=== PATIENT | male | born 1935 | race Caucasian/White ===

== ENCOUNTER 2018-09-25 23:52 | Inpatient (IN) | payer MEDICARE, OTHER ==
[~2018-09-25] VITALS: Ht 188 cm; Wt 93.4 kg
--- NOTE | 2018-09-25 23:54 | NUR ---
83 Y/O MALE PRESENTS TO THE ER BY BRENDA WITH AN ALOC X 2 HOURS PER . PT POOR HISTORIAN AND DIFFICULT TO OBTAIN INFORMATION FROM. SHE STATES THE PT "HAS BEEN FINE" AND THEN STARTED ACTING STRANGE. EMS FOUND THE PT TO BE ALERT TO PAINFUL STIMULI WITH A GCS OF 9. AXILLARY TEMP WAS 103.3, RA SAT 87%. HR 150-160S, AFIB WITH RVR. NO ST CHANGES ON MONITOR. REPORTS HX OF CVA 6 MONTHS AGO IN WHICH HE TAKES ELIQUIS AND A CARDIAC HX BUT UNKNOWN WHAT. EMS ESTABLISHED BILATERAL 18G IVS AND ADMINISTERED 400ML OF FLUID. FSBS WAS 127. PT ON O2 VIA NC @ 4LPM. DR. ZAMORANO AT BEDSIDE. WILL CONTINUE TO MONITOR.
[2018-09-26] MEDS ORDERED: SODIUM CHLORIDE FLUSH 10ML SYR IVF ONE
--- NOTE | 2018-09-26 00:03 | NUR ---
ZHAO INSERTED, CLEAR YELLOW URINE OUTPUT OF 100ML. UA OBTAINED AND SENT TO LAB. TEMP PROB ATTACHED.
[2018-09-26] MEDS ORDERED: ACETAMINOPHEN 650 MG SUPP ONE (00:19)
--- NOTE | 2018-09-26 00:19 | NUR ---
TYLENOL ADMINISTERED RECTALLY FOR FEVER. COLD PACKS PLACED ON GROIN AND AXILLARY BILATERALLY FOR COOLING. ZHAO TEMP CURRENTLY 104.4
[2018-09-26 00:30] LABS: MEAN CORPUSCULAR HEMOGLOBIN 35.9 pg (27.5-34.5); MEAN CORPUSCULAR HGB CONC 33.7 g/dL (33.2-36.2); MEAN CORPUSCULAR VOLUME 106.7 fL (81-97); MEAN PLATELET VOLUME 9.7 fL (7.4-10.4); PLATELET COUNT 269 x10^3/uL (130-400); RED BLOOD COUNT 3.55 x10^6/uL (4.38-5.82); RED CELL DISTRIBUTION WIDTH 16.8 % (9.4-14.8)
[2018-09-26] MEDS ORDERED: AZITHROMYCIN 500 MG in SODIUM CHLORIDE 0.9% 250 ML IV ONE (00:30)
[2018-09-26] MEDS ORDERED: PLEASE ENTER ALLERGIES MC SCH (00:30)
[2018-09-26] MEDS ORDERED: ACETAMINOPHEN 325 MG SUPP PR ONE (00:30)
[2018-09-26] MEDS ORDERED: CEFTRIAXONE PMX 2GM/50ML 50 ML IV SCH ×2 (00:30→03:00)
[2018-09-26] MEDS ORDERED: CEFTRIAXONE PMX 1GM/50ML 50 ML ONE (00:32)
[2018-09-26 00:36] LABS: AMPHETAMINE SCREEN, URINE Negative (Negative); BARBITURATE SCREEN, URINE Negative (Negative); BENZODIAZEPINE SCREEN, URINE Negative (Negative); CANNABINOID SCREEN, URINE Negative (Negative); COCAINE SCREEN, URINE Negative (Negative); METHADONE SCREEN, URINE Negative (Negative); OPIATE SCREEN, URINE Negative (Negative)
--- NOTE | 2018-09-26 00:41 | NUR ---
DUARTE JIMENEZ APPLIED FOR COOLING MEASURES. PAVEL WOODY REACHED 105.1 Addendum: 09/26/18 at 0049 by KENZIE ARTIC BO APPLIED FOR COOLING MEASURES
[2018-09-26 00:42] LABS: ALANINE AMINOTRANSFERASE 383 U/L (12-78); ALBUMIN 3.1 g/dL (3.4-5.0); ANION GAP 8 mmol/L (5-15); CALCIUM 8.9 mg/dL (8.5-10.1); CHLORIDE 107 mmol/L (98-107); CREATININE 0.98 mg/dL (0.7-1.3)
--- NOTE | 2018-09-26 00:42 | NUR ---
FLU SWAB DONE, SENT TO LAB
[2018-09-26 00:43] LABS: INTERNATIONAL NORMALIZED RATIO 1.13 (0.93-1.1); PROTHROMBIN TIME 11.8 Seconds (9.6-11.5)
[2018-09-26 00:45] LABS: ALKALINE PHOSPHATASE 570 U/L (45-117); BILIRUBIN,TOTAL 2.5 mg/dL (0.2-1.0); TOTAL PROTEIN 8.2 g/dL (6.4-8.2)
--- NOTE | 2018-09-26 00:49 | NUR ---
PT TO CT
[2018-09-26 00:57] LABS: MICROSCOPIC INDICATED
[2018-09-26] MEDS ORDERED: SODIUM CHLORIDE 0.9% 1,000ML IVBOLUS ONE ×2 (01:00)
[2018-09-26 01:03] LABS: MD YES
[2018-09-26 01:05] LABS: BAND#(MANUAL) 5.39 x10^3/uL; BANDS%(MANUAL) 17 % (0-7); LYMPH#(MANUAL) 0.95 x10^3/uL (1-3.4); LYMPHS% (MANUAL) 3 % (22-44); SEG#(MANUAL) 25.36 x10^3/uL (1.8-6.8); SEGS% (MANUAL) 80 % (42-75)
[2018-09-26 01:07] LABS: <PLATELET ESTIMATE> ADEQUATE; POLYCHROMASIA 1+
[2018-09-26 01:08] LABS: <PLT MORPHOLOGY> NORMAL PLT MORPH
--- NOTE | 2018-09-26 01:08 | NUR ---
PT BACK FROM CT
[2018-09-26 01:09] LABS: RAPID INFLUENZA A Negative (Negative); RAPID INFLUENZA B Negative (Negative)
[2018-09-26 01:09] LABS: CULTURE INDICATED? NO
[2018-09-26] MEDS ORDERED: OMNIPAQUE 350 MG/ML, 100ML BOTTLE ONE (01:10)
--- NOTE | 2018-09-26 01:24 | NUR ---
PT AGITATED WITH ARTIC SUN. PER DR. ZAMORNAO ITS NOT NEEDED AT THIS TIME, CONTINUE WITH ICE PACKS AND WET CLOTHS FOR COOLING MEASURES. ZHAO TEMP 103.7 RIGHT NOW. PT MORE ALERT. ABLE TO ANSWER QUESTIONS APPROPRIATELY. AT BEDSIDE.
--- NOTE | 2018-09-26 01:28 | NUR ---
700ML OF CLEAR URINE OUTPUT
--- NOTE | 2018-09-26 01:39 | NUR ---
TASK RN: PT RESTING IN [facility], SO AT BEDSIDE. COOLING MEASURES IN PLACE. PT WITHDRAWS TO STIMULI, OTHERWISE NON-VERBAL AT THIS TIME. RR EVEN, RAPID. RR 30'S. SPO2 >90% ON 4L BY NC. ABX INFUSING PER EMAR; NO S/S OF ABX RXN NOTED. SEPSIS PROTOCOL IVF COMPLETE. BP/SPO2/ECG MONITORING IN PLACE. AFIB, HR 120'S ON MONITOR. MAP 75. AWAITING HOSPITALIST ORDERS FOR ADMIT
[2018-09-26] MEDS ORDERED: SODIUM CHLORIDE 0.9% 1,000 ML IV SCH (02:22)
[2018-09-26] MEDS ORDERED: POTASSIUM CHLORIDE 40 MEQ in SODIUM CHLORIDE 0.9% 500 ML IV ONE (02:30)
[2018-09-26] MEDS ORDERED: morphine SULFATE 10 MG/ML, 1ML IVPush PRN (02:30)
[2018-09-26] MEDS ORDERED: ZOSYN PER PHARMACY MC PRN (02:30)
[2018-09-26] MEDS ORDERED: MAGNESIUM SULFATE 1 GM in SODIUM CHLORIDE 0.9% 50 ML IV ONE (02:30)
[2018-09-26] MEDS ORDERED: VANCOMYCIN PER PHARMACY MC PRN (02:30)
[2018-09-26] MEDS ORDERED: ONDANSETRON 2MG/ML, 2ML IVPB PRN (02:30)
[2018-09-26] MEDS ORDERED: PHARMACY MAY ADJ FOR RENAL FX MC PRN (02:30)
[2018-09-26] MEDS ORDERED: ACETAMINOPHEN 650 MG SUPP PR PRN (02:30)
[2018-09-26] MEDS ORDERED: DILTIAZEM 5 MG/ML, 5ML IVPush PRN (02:30)
--- NOTE | 2018-09-26 02:36 | NUR ---
PT SLEEPING WITH MOUTH OPEN, O2 ADMINISTRATION CHANGED TO OXYMASK 4LPM. PT TOLERATING WELL, O2 SATS 97% ON OXYMASK. PT OPENS EYES TO VERBAL STIMULI. SO AT BEDSIDE.
[2018-09-26 02:42] LABS: TROPONIN I 0.414 ng/mL (0.000-0.045)
[2018-09-26] MEDS: AZITHROMYCIN 500 MG in SODIUM CHLORIDE 0.9% 250 ML IV SCH (03:08)
--- NOTE | 2018-09-26 03:09 | NUR ---
PT MEDICATED PER EMAR. 5 RIGHTS ADDRESSED. REPORT TO ROBERT FERNANDEZ.
[2018-09-26 04:00] VITALS: BP 96/62
[2018-09-26] MEDS ORDERED: HEPARIN 25,000 UNITS/500ML PMX 500 ML IV PRN (04:00)
[2018-09-26] MEDS ORDERED: HEPARIN 5,000 UNITS/ML, 1ML IV PRN ×2 (04:00→04:30)
[2018-09-26] MEDS ORDERED: HEPARIN 5,000 UNITS/ML, 1ML IV ONE ×2 (04:00→04:30)
[2018-09-26 04:49] LABS: MEAN CORPUSCULAR HEMOGLOBIN 36.1 pg (27.5-34.5); MEAN CORPUSCULAR HGB CONC 33.5 g/dL (33.2-36.2); MEAN CORPUSCULAR VOLUME 107.6 fL (81-97); MEAN PLATELET VOLUME 9.9 fL (7.4-10.4); PLATELET COUNT 227 x10^3/uL (130-400); RED BLOOD COUNT 3.31 x10^6/uL (4.38-5.82); RED CELL DISTRIBUTION WIDTH 16.6 % (9.4-14.8)
[2018-09-26 05:02] LABS: ALANINE AMINOTRANSFERASE 363 U/L (12-78); ALBUMIN 2.7 g/dL (3.4-5.0); ANION GAP 9 mmol/L (5-15); CALCIUM 8.3 mg/dL (8.5-10.1); CHLORIDE 109 mmol/L (98-107); CREATININE 0.86 mg/dL (0.7-1.3)
[2018-09-26 05:04] LABS: ALKALINE PHOSPHATASE 460 U/L (45-117); BILIRUBIN,TOTAL 3.1 mg/dL (0.2-1.0); CHOL/HDL RATIO 2.5; CHOLESTEROL, TOTAL 89 mg/dL (140-239); HDL CHOL % 40 % (26-37); HDL CHOLESTEROL (DIRECT) 36 mg/dL (40-60); LDL CHOLESTEROL,CALCULATED 34 mg/dL (54-169); LDL/HDL RATIO 0.9 (0.5-3.0); TRIGLYCERIDES 97 mg/dL (50-200); VLDL CHOLESTEROL 19 mg/dL (0-25)
[2018-09-26] MEDS: HEPARIN 25,000 UNITS/500ML PMX 500 ML IV PRN (05:06)
[2018-09-26 05:53] LABS: MD YES
[2018-09-26 06:01] LABS: BAND#(MANUAL) 15.36 x10^3/uL; BANDS%(MANUAL) 32 % (0-7); LYMPH#(MANUAL) 1.44 x10^3/uL (1-3.4); LYMPHS% (MANUAL) 3 % (22-44); METAMYELOCYTES# (MANUAL) 0.96 x10^3/uL (0-0); METAMYELOCYTES% (MANUAL) 2 % (0-1); MONOS#(MANUAL) 0.96 x10^3/uL (0.3-2.7); MONOS% (MANUAL) 2 % (2-9); SEG#(MANUAL) 29.28 x10^3/uL (1.8-6.8); SEGS% (MANUAL) 61 % (42-75)
[2018-09-26 06:04] LABS: <PLATELET ESTIMATE> ADEQUATE; <PLT MORPHOLOGY> NORMAL PLT MORPH; POLYCHROMASIA 1+
[2018-09-26 06:05] LABS: ANISOCYTOSIS 1+
[2018-09-26] MEDS ORDERED: ASPI-650 PO (06:26)
[2018-09-26] MEDS ORDERED: DILT120C58 PO (06:26)
[2018-09-26] MEDS ORDERED: ATOR-2 PO (06:26)
[2018-09-26] MEDS ORDERED: APIX5TAB PO (06:26)
[2018-09-26] MEDS ORDERED: MAGNESIUM SULFATE PMX 4GM/100M 100 ML IV ONE (07:30)
[2018-09-26] MEDS ORDERED: APIXABAN 5 MG TABLET PO SCH (09:00)
[2018-09-26] MEDS ORDERED: ASPIRIN 325 MG TABLET PO ONE (12:00)
[2018-09-26 12:27] LABS: CHOL/HDL RATIO 2.3; LDL/HDL RATIO 0.9 (0.5-3.0)
[2018-09-26] MEDS: POTASSIUM CHLORIDE 20 MEQ TAB.ER.PRT PO SCH ×2 (14:11→20:15)
[2018-09-26] MEDS: METOPROLOL TARTRATE 25 MG TABLET PO SCH ×2 (14:11→18:00)
[2018-09-26] MEDS: MEROPENEM 1 GM in SODIUM CHLORIDE 0.9% 100 ML IV SCH (16:38)
[2018-09-26] MEDS: ATORVASTATIN 40 MG TABLET PO SCH (20:15)
[2018-09-26] MEDS: MELATONIN 3 MG TABLET PO PRN (20:46)
[2018-09-27] MEDS: MEROPENEM 1 GM in SODIUM CHLORIDE 0.9% 100 ML IV SCH ×3 (00:13→17:14)
[2018-09-27] MEDS ORDERED: SODIUM CHLORIDE 0.9% 1,000 ML IV SCH (02:22)
[2018-09-27] MEDS: AZITHROMYCIN 500 MG in SODIUM CHLORIDE 0.9% 250 ML IV SCH (03:22)
[2018-09-27 04:57] VITALS: BP 120/83
[2018-09-27] MEDS: ASPIRIN 81 MG TABLET EC PO SCH (06:09)
[2018-09-27] MEDS: METOPROLOL TARTRATE 25 MG TABLET PO SCH ×2 (06:09→17:14)
[2018-09-27 06:26] LABS: ALANINE AMINOTRANSFERASE 253 U/L (12-78); ALBUMIN 2.5 g/dL (3.4-5.0); ANION GAP 7 mmol/L (5-15); CALCIUM 8.2 mg/dL (8.5-10.1); CHLORIDE 112 mmol/L (98-107); CREATININE 0.73 mg/dL (0.7-1.3)
[2018-09-27 06:29] LABS: ALKALINE PHOSPHATASE 359 U/L (45-117); BILIRUBIN,TOTAL 3.1 mg/dL (0.2-1.0)
[2018-09-27 07:39] LABS: MEAN CORPUSCULAR HEMOGLOBIN 34.4 pg (27.5-34.5); MEAN CORPUSCULAR HGB CONC 31.7 g/dL (33.2-36.2); MEAN CORPUSCULAR VOLUME 108.8 fL (81-97); MEAN PLATELET VOLUME 11.1 fL (7.4-10.4); PLATELET COUNT 208 x10^3/uL (130-400); RED BLOOD COUNT 2.95 x10^6/uL (4.38-5.82); RED CELL DISTRIBUTION WIDTH 17.3 % (9.4-14.8)
[2018-09-27 08:12] LABS: MD YES
[2018-09-27 08:13] LABS: LYMPH#(MANUAL) 1.69 x10^3/uL (1-3.4); LYMPHS% (MANUAL) 5 % (22-44)
[2018-09-27 08:14] LABS: <PLATELET ESTIMATE> ADEQUATE; ANISOCYTOSIS 1+; BAND#(MANUAL) 4.06 x10^3/uL; BANDS%(MANUAL) 12 % (0-7); LARGE PLATELETS 1+; POLYCHROMASIA 1+; SEG#(MANUAL) 28.05 x10^3/uL (1.8-6.8); SEGS% (MANUAL) 83 % (42-75)
[2018-09-27 12:28] VITALS: BP 129/98
[2018-09-27] MEDS: HEPARIN 25,000 UNITS/500ML PMX 500 ML IV PRN (13:45)
[2018-09-27 20:35] VITALS: BP 119/77
[2018-09-27] MEDS: MELATONIN 3 MG TABLET PO PRN (21:00)
[2018-09-27] MEDS: ATORVASTATIN 40 MG TABLET PO SCH (21:00)
[2018-09-28 01:26] VITALS: BP 114/64
[2018-09-28 05:34] LABS: MEAN CORPUSCULAR HEMOGLOBIN 35.8 pg (27.5-34.5); MEAN CORPUSCULAR HGB CONC 33.4 g/dL (33.2-36.2); MEAN CORPUSCULAR VOLUME 107.3 fL (81-97); MEAN PLATELET VOLUME 10.9 fL (7.4-10.4); PLATELET COUNT 195 x10^3/uL (130-400); RED BLOOD COUNT 2.86 x10^6/uL (4.38-5.82); RED CELL DISTRIBUTION WIDTH 17.5 % (9.4-14.8)
[2018-09-28] MEDS: METOPROLOL TARTRATE 25 MG TABLET PO SCH ×2 (05:56→17:30)
[2018-09-28] MEDS: ASPIRIN 81 MG TABLET EC PO SCH (05:56)
[2018-09-28 06:23] LABS: MD YES
[2018-09-28 06:26] LABS: BAND#(MANUAL) 0.62 x10^3/uL; BANDS%(MANUAL) 3 % (0-7); LYMPH#(MANUAL) 1.66 x10^3/uL (1-3.4); LYMPHS% (MANUAL) 8 % (22-44); METAMYELOCYTES# (MANUAL) 0.21 x10^3/uL (0-0); METAMYELOCYTES% (MANUAL) 1 % (0-1); MONOS#(MANUAL) 0.42 x10^3/uL (0.3-2.7); MONOS% (MANUAL) 2 % (2-9); SEG#(MANUAL) 17.89 x10^3/uL (1.8-6.8); SEGS% (MANUAL) 86 % (42-75)
[2018-09-28 06:27] LABS: <PLATELET ESTIMATE> ADEQUATE; ANISOCYTOSIS 1+; LARGE PLATELETS 1+; POLYCHROMASIA 1+
[2018-09-28 07:09] VITALS: BP 134/96
[2018-09-28 08:38] LABS: ALANINE AMINOTRANSFERASE 198 U/L (12-78); ALBUMIN 2.5 g/dL (3.4-5.0); ANION GAP 7 mmol/L (5-15); CALCIUM 8.4 mg/dL (8.5-10.1); CHLORIDE 113 mmol/L (98-107); CREATININE 0.76 mg/dL (0.7-1.3)
[2018-09-28 08:40] LABS: ALKALINE PHOSPHATASE 354 U/L (45-117); BILIRUBIN,TOTAL 2.5 mg/dL (0.2-1.0)
[2018-09-28] MEDS: MEROPENEM 1 GM in SODIUM CHLORIDE 0.9% 100 ML IV SCH ×3 (09:08→17:09)
[2018-09-28 16:43] VITALS: BP 140/99
[2018-09-28] MEDS ORDERED: CEFTRIAXONE PMX 1GM/50ML 50 ML IV SCH (18:30)
[2018-09-28] MEDS: ATORVASTATIN 40 MG TABLET PO SCH (20:27)
[2018-09-28] MEDS: APIXABAN 5 MG TABLET PO SCH (20:27)
[2018-09-28 20:38] VITALS: BP 142/96
[2018-09-29 01:26] VITALS: BP 141/92
[2018-09-29] MEDS: MELATONIN 3 MG TABLET PO PRN ×2 (01:27→20:56)
[2018-09-29] MEDS ORDERED: METOPROLOL 1 MG/ML, 5ML IVPush ONE (01:30)
[2018-09-29 05:01] LABS: MEAN CORPUSCULAR VOLUME 105.8 fL (81-97); MEAN PLATELET VOLUME 11.4 fL (7.4-10.4); PLATELET COUNT 193 x10^3/uL (130-400); RED BLOOD COUNT 3.03 x10^6/uL (4.38-5.82)
[2018-09-29 05:17] LABS: CHLORIDE 112 mmol/L (98-107)
[2018-09-29 05:35] LABS: ALANINE AMINOTRANSFERASE 170 U/L (12-78); ALBUMIN 2.6 g/dL (3.4-5.0); ALKALINE PHOSPHATASE 339 U/L (45-117); ANION GAP 9 mmol/L (5-15); BILIRUBIN,TOTAL 1.4 mg/dL (0.2-1.0); CALCIUM 8.7 mg/dL (8.5-10.1); CREATININE 0.74 mg/dL (0.7-1.3); TOTAL PROTEIN 7.5 g/dL (6.4-8.2)
[2018-09-29 05:36] LABS: BASOPHILS # (AUTO) 0.04 x10^3/uL (0-0.1); BASOPHILS % (AUTO) 0 % (0-1); EOSINOPHILS # (AUTO) 0.01 x10^3/uL (0-0.4); EOSINOPHILS % (AUTO) 0 % (1-7); LYMPHOCYTES # (AUTO) 1.15 x10^3/uL (1-3.4); LYMPHOCYTES % (AUTO) 7 % (22-44); MD SCAN; MONOCYTES # (AUTO) 0.53 x10^3/uL (0.2-0.8); MONOCYTES % (AUTO) 3 % (2-9); NEUTROPHILS # (AUTO) 14.66 x10^3/uL (1.8-6.8); NEUTROPHILS % (AUTO) 90 % (42-75)
[2018-09-29 06:28] VITALS: BP 139/56
[2018-09-29] MEDS: ASPIRIN 81 MG TABLET EC PO SCH (06:32)
[2018-09-29] MEDS: METOPROLOL TARTRATE 25 MG TABLET PO SCH ×2 (06:32→18:37)
[2018-09-29 07:55] VITALS: BP 132/90
[2018-09-29] MEDS ORDERED: REGADENOSON 0.4 MG/5 ML SYRINGE ONE (08:16)
[2018-09-29] MEDS: APIXABAN 5 MG TABLET PO SCH ×2 (08:35→20:56)
[2018-09-29] MEDS: DILTIAZEM 120 MG CAP.ER.24H PO SCH (10:06)
[2018-09-29 12:20] VITALS: BP 132/91
[2018-09-29 20:22] VITALS: BP 128/83
[2018-09-29] MEDS: CEFTRIAXONE PMX 2GM/50ML 50 ML IV SCH (20:55)
[2018-09-29] MEDS: ATORVASTATIN 40 MG TABLET PO SCH (20:56)
[2018-09-30 01:01] VITALS: BP 129/85
[2018-09-30] MEDS: ASPIRIN 81 MG TABLET EC PO SCH (05:12)
[2018-09-30 05:13] VITALS: BP 136/89
[2018-09-30] MEDS: METOPROLOL TARTRATE 25 MG TABLET PO SCH ×2 (05:13→18:00)
[2018-09-30 05:33] LABS: CHLORIDE 113 mmol/L (98-107)
[2018-09-30 05:38] LABS: ALANINE AMINOTRANSFERASE 123 U/L (12-78); ALBUMIN 2.4 g/dL (3.4-5.0); ALKALINE PHOSPHATASE 267 U/L (45-117); ANION GAP 9 mmol/L (5-15); CALCIUM 8.3 mg/dL (8.5-10.1); TOTAL PROTEIN 6.7 g/dL (6.4-8.2)
[2018-09-30 05:42] LABS: MEAN CORPUSCULAR HEMOGLOBIN 35.9 pg (27.5-34.5); MEAN CORPUSCULAR HGB CONC 33.5 g/dL (33.2-36.2); MEAN CORPUSCULAR VOLUME 107.1 fL (81-97); PLATELET COUNT 172 x10^3/uL (130-400); RED BLOOD COUNT 2.91 x10^6/uL (4.38-5.82); RED CELL DISTRIBUTION WIDTH 17.2 % (9.4-14.8)
[2018-09-30 06:45] LABS: BASOPHILS # (AUTO) 0.05 x10^3/uL (0-0.1); BASOPHILS % (AUTO) 0 % (0-1); EOSINOPHILS # (AUTO) 0.04 x10^3/uL (0-0.4); EOSINOPHILS % (AUTO) 0 % (1-7); LYMPHOCYTES # (AUTO) 1.46 x10^3/uL (1-3.4); LYMPHOCYTES % (AUTO) 11 % (22-44); MD SCAN; MONOCYTES # (AUTO) 0.73 x10^3/uL (0.2-0.8); MONOCYTES % (AUTO) 5 % (2-9); NEUTROPHILS # (AUTO) 11.35 x10^3/uL (1.8-6.8); NEUTROPHILS % (AUTO) 83 % (42-75)
[2018-09-30 07:48] VITALS: BP 124/85
[2018-09-30] MEDS: APIXABAN 5 MG TABLET PO SCH ×2 (08:05→20:50)
[2018-09-30] MEDS: DILTIAZEM 120 MG CAP.ER.24H PO SCH (08:06)
[2018-09-30 15:36] VITALS: BP 130/86
[2018-09-30] MEDS: CEFTRIAXONE PMX 2GM/50ML 50 ML IV SCH (20:50)
[2018-09-30] MEDS: ATORVASTATIN 40 MG TABLET PO SCH (20:50)
[2018-09-30] MEDS: MELATONIN 3 MG TABLET PO PRN (20:50)
[2018-09-30 21:15] VITALS: BP 115/81
[2018-10-01 00:25] VITALS: BP 125/90
[2018-10-01 05:51] VITALS: BP 125/91
[2018-10-01] MEDS: ASPIRIN 81 MG TABLET EC PO SCH (05:51)
[2018-10-01] MEDS: METOPROLOL TARTRATE 25 MG TABLET PO SCH (05:52)
[2018-10-01 07:07] VITALS: BP 132/86
[2018-10-01] MEDS: APIXABAN 5 MG TABLET PO SCH (07:27)
[2018-10-01] MEDS: DILTIAZEM 120 MG CAP.ER.24H PO SCH (07:27)
[2018-10-01 13:10] VITALS: BP 138/93
[2018-10-01] MEDS ORDERED: CIPR500T87 PO (14:34)
[2018-10-01] MEDS ORDERED: METO25TA35 PO (14:34)
[2018-10-01] MEDS ORDERED: MELA3TAB2 PO (14:34)
[2018-10-01] MEDS: CEFTRIAXONE PMX 2GM/50ML 50 ML IV SCH (14:59)
== END 2018-10-01 17:10 | disposition home or self-care (01) | DRG 871 ==
LOC: ED 09-26 00:39 → EDIP 09-26 01:32 → ICU 09-26 03:27 → 5SO 09-27 12:08 → DCLOUNGE 10-01 17:00
PROVIDERS: ADMIT Family Medicine; ATTEND Internal Medicine
PROC: 0T9B70Z Drainage of Bladder with Drainage Device, Via Natural or Artificial Opening (ICD-10-PCS; principal; 2018-09-26)
DX: A41.51 Sepsis due to Escherichia coli [E. coli] (principal); I21.4 Non-ST elevation (NSTEMI) myocardial infarction; K72.00 Acute and subacute hepatic failure without coma; G93.41 Metabolic encephalopathy; J96.01 Acute respiratory failure with hypoxia; D68.69 Other thrombophilia; K83.09 Other cholangitis; E78.5 Hyperlipidemia, unspecified; E87.6 Hypokalemia; I25.10 Atherosclerotic heart disease of native coronary artery without angina pectoris; I27.20 Pulmonary hypertension, unspecified; I34.0 Nonrheumatic mitral (valve) insufficiency; I48.2 Chronic atrial fibrillation; Z86.73 Personal history of transient ischemic attack (TIA), and cerebral infarction without residual deficits; K80.20 Calculus of gallbladder without cholecystitis without obstruction; N20.0 Calculus of kidney; K57.30 Diverticulosis of large intestine without perforation or abscess without bleeding; R65.20 Severe sepsis without septic shock; Z79.01 Long term (current) use of anticoagulants; Z87.891 Personal history of nicotine dependence
CPT/HCPCS: 36415; 36600; 70450; 71045; 74177; 76700; 78226; 78452; 80053; 80061; 80074; 80307; 81001; 82140; 82803; 83605; 83735; 83880; 84100; 84145; 84443; 84484; 85025; 85520; 85610; 85651; 85730; 86141; 87040; 87077; 87081; 87186; 87400; 93005; 93017; 93306; 96365; 96368; G0378; J0456; J0696; J1644; J2185; J2785; J3475; J3480; Q9967; 92523-GN; A9502; A9537; C9898; J7030; J7040; J7050